=== PATIENT | female | born 1965 | race Caucasian/White ===

== ENCOUNTER → 2020-05-01 16:16 | Outpatient (CLI) | payer BC, SELFPAY ==
--- NOTE | ~2020-05-01 | MM_ITS ---
EXAMINATION: MM screening myra BI w peggy HISTORY: Screening mammogram, family history of breast cancer in her mother. TECHNIQUE: Craniocaudal and mediolateral oblique 3-D tomosynthesis images were obtained and synthetic 2-D images were generated. CAD analysis was submitted and interpreted. COMPARISON: 10/06/2017, 09/10/2015 BREAST PARENCHYMAL COMPOSITION: There are scattered areas of fibroglandular density. FINDINGS: There is no evidence of suspicious mass, calcification, or architectural distortion to sugg est malignancy in either breast. There has been no suspicious interval change. IMPRESSION: 1. No mammographic evidence of malignancy. 2. Recommend routine screening mammography in one year. BI-RADS Category 1: Negative Reviewed, dictated and finalized at location A. 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
== END ==
PROVIDERS: Visit Provider Nurse Practitioner Obstetrics & Gynecology
DX: Z12.31 Encounter for screening mammogram for malignant neoplasm of breast (principal)
CPT/HCPCS: 77063; 77067

== ENCOUNTER 2021-02-01 00:52 | Day surgery (SDC) | payer BC, SELFPAY ==
[2021-01-20 13:22] VITALS: BMI 24.9
[2021-02-01 08:37] VITALS: BP 121/82; PULSE 76; RESP 16; TEMP 36.6; O2SAT 99; BMI 23.1
--- NOTE | 2021-02-01 09:02 | P.PNAN_ITS ---
Anes - Initial Pre Proc Eval Procedure: Operation Date: 02/01/21 09:30 Proposed Procedures p Screening Colonoscopy - Esau Ballesteros MD Date/Time: 02/01/21 09:02 Surgeon: Esau Ballesteros MD Pre Op Diagnosis: neoplasm screening Patient Data Age: 55 Gender: F Height: 1.65 m Weight: 63 kg Last Vital Signs Temp 97.9 F 02/01/21 08:37 Pulse 76 02/01/21 08:37 Resp 16 02/01/21 08:37 BP 121/82 02/01/21 08:37 Pulse Ox 99 02/01/21 08:37 Allergies Allergy/AdvReac Type Severity Reaction Status Date / Time NA Allergy Mild Other Uncoded 02/01/21 08:33 Home Medications Medication Instructions Recorded Confirmed Type fluoxetine 20 mg capsule 20 mg PO DAILY 03/25/20 02/01/21 History cholecalciferol (vitamin D3) 1,250 50,000 unit PO WEEKLY #8 cap 03/31/20 02/01/21 Rx mcg (50,000 unit) capsule omeprazole 20 mg capsule,delayed 20 mg PO BID #60 cap 10/20/20 02/01/21 Rx release Patient hx anesthesia problems: none Family hx anesthesia problems: none Results Review: All pre-operative results and documents have been reviewed as part of the pre-operative evaluation. FOR[facility], [facility] Past Medical History Medical History Acute bronchitis due to other specified organisms Chest discomfort Dizziness New persistent daily headache Family History Family History Father No problems noted. Mother Breast cancer Heart disease Sibling No problems noted. 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 Gender identity (if verbalized by the patient): Female Anes - Eval Final PreProcedure Day of Procedure 02/01/21 09:02 Patient weight: normal Heart: regular rate and rhythm Lungs: clear to auscultation Airway: Mallampati scale class II Neurological: alert and oriented Last oral intake: >/= 8 hours ASA classification: II Emergent: no Anesthetic plan: proceed Anesthesia type and monitoring: general GIVS and standard monitoring Results Review: All pre-operative results and documents have been reviewed as part of the pre-operative evaluation. Informed Consent: The patient's anesthetic plan and its attendant risks and benefits were discussed with the patient/family/POA. Questions were solicited and answers provided to the satisfaction of the patient/family/POA.
--- NOTE | 2021-02-01 09:03 | PM.HPGS ---
History of Present Illness History of Present Illness Consent: Risks, benefits, and alternatives have been discussed and questions answered. Patient agrees to proceed with procedure. Chief complaint: neoplasm screening Narrative: Ayla Cortez is a 55 year old female here for first screening colonoscopy Review of Systems Constitutional: Constitutional: Denies headache(s) and Denies weakness Eyes: Eyes: Denies blurry vision ENT: Reports Normal hearing present, Denies headache(s) and Denies neck pain Cardiovascular: Cardiovascular: Denies chest pain and Denies dyspnea Respiratory: Respiratory: Denies dyspnea Gastrointestinal: Gastrointestinal: Reports no additional gastrointestinal complaints Genitourinary: Genitourinary: Denies dysuria Musculoskeletal: Musculoskeletal: Denies neck pain Integumentary/Breasts: Skin/Breast: Denies dry skin Neurologic: Reports Normal hearing present, Denies headache(s) and Denies weakness Psychiatric: Psychiatric: Denies anxiety Endocrine: Endocrine: Denies change in body appearance Hematologic/Lymphatic: Hematologic/Lymphatic: Denies easy bleeding Allergic/Immunologic: Allergic/Immunologic: Denies urticaria PMFSH Past Medical History Medical History Acute bronchitis due to other specified organisms Chest discomfort Dizziness New persistent daily headache Family History Family History Father No problems noted. Mother Breast cancer Heart disease Sibling No problems noted. 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 Gender identity (if verbalized by the patient): Female Meds Home Medications and Allergies Home Medications Medication Instructions Recorded Confirmed Type fluoxetine 20 mg capsule 20 mg PO DAILY 03/25/20 02/01/21 History cholecalciferol (vitamin D3) 1,250 50,000 unit PO WEEKLY #8 cap 03/31/20 02/01/21 Rx mcg (50,000 unit) capsule omeprazole 20 mg capsule,delayed 20 mg PO BID #60 cap 10/20/20 02/01/21 Rx release Allergies Allergy/AdvReac Type Severity Reaction Status Date / Time NA Allergy Mild Other Uncoded 02/01/21 08:33 Vital Signs Vital Signs - 24 hr 02/01/21 08:37 Temperature 97.9 F Pulse Rate 76 Respiratory Rate 16 Blood Pressure 121/82 Pulse Oximetry 99 Exam Const: General: comfortable and no acute distress HENMT: General nose exam: Normal nares present Eyes: General: appearance normal, both eyes and all related structures Neck: Neck: no JVD Resp: Auscultation: clear to auscultation bilaterally Cardio: Rate: regular rate Rhythm: regular rhythm GI: Inspection: non-distended GI Palp: Yes Soft to palpation Skin: General skin exam: normal color Neuro: General: gait normal Speech: normal speech Extrem: General: normal to inspection Psych: Mental Status: mental status grossly normal Assessment and Plan Assessment and plan (1) Screening for malignant neoplasm of colon: Code(s): Z12.11 - Encounter for screening for malignant neoplasm of colon Status: Acute Assessment and Plan: colonoscopy
[2021-02-01] MEDS: LACTATED RINGERS 1,000 ML 150 ML IV CONT (09:23)
[2021-02-01 09:59] VITALS: BP 95/68; PULSE 69; RESP 20; O2SAT 99
[2021-02-01 10:09] VITALS: BP 105/75; PULSE 76; RESP 18; O2SAT 100
[2021-02-01 10:19] VITALS: BP 114/76; PULSE 74; RESP 20; O2SAT 100
== END 2021-02-01 10:35 | disposition home or self-care (01) ==
PROVIDERS: PCP Family Medicine; Visit Provider Internal Medicine Gastroenterology
PROC: 0DJD8ZZ Inspection of Lower Intestinal Tract, Via Natural or Artificial Opening Endoscopic (ICD-10-PCS; CPT 45378; principal; 2021-02-01 09:30)
DX: Z12.11 Encounter for screening for malignant neoplasm of colon (principal); D12.0 Benign neoplasm of cecum; D12.2 Benign neoplasm of ascending colon; D12.5 Benign neoplasm of sigmoid colon; K63.5 Polyp of colon; K64.8 Other hemorrhoids
CPT/HCPCS: 45385; 88305; J2704; J7120

== ENCOUNTER 2023-12-27 15:00 | Outpatient (CLI) | payer BC, SELFPAY ==
--- NOTE | ~2023-12-27 | MM_ITS ---
EXAMINATION: MM screening myra BI w peggy HISTORY: Screening mammogram, family history of breast cancer in her mother. TECHNIQUE: Craniocaudal and mediolateral oblique 3-D tomosynthesis images were obtained and synthetic 2-D images were generated. CAD analysis was submitted and interpreted. COMPARISON: 05/01/2020, 10/06/2017 BREAST PARENCHYMAL COMPOSITION:Not Dense. There are scattered areas of fibroglandular density. FINDINGS: No suspicious mass, calcification, or architectural distortion are identified in either lupe ast to suggest malignancy. There has been no suspicious interval change. IMPRESSION: No mammographic evidence of malignancy. Recommend routine screening mammography in one year. BI-RADS Category 1: Negative Reviewed, dictated and finalized at location .
== END 2023-12-27 15:01 | disposition home or self-care (01) ==
LOC: MICIMG 15:01
PROVIDERS: PCP Nurse Practitioner Obstetrics & Gynecology; Visit Provider Nurse Practitioner Obstetrics & Gynecology
DX: Z12.31 Encounter for screening mammogram for malignant neoplasm of breast (principal)
CPT/HCPCS: 77063; 77067

== ENCOUNTER 2024-09-06 00:39 | Day surgery (SDC) | payer BC, SELFPAY ==
[2024-08-23 15:21] VITALS: BMI 25.8
--- NOTE | 2024-08-23 15:28 | PC.NURSE ---
Addendum entered by Oj Cantrell RN 08/28/24 13:27: Patient says no changes since preop interview. Told patient to be here at 10am on 09-06-2024 for surgery at 1200. Original Note: Report to the Outpatient Waiting Room, entrance under the green pavilion located off [facility], at time _1230_ on date _[id number]_. Planned Procedure Time: _230pm_.? Time changes happen often and if your time is changed the preop area will call you the afternoon before. - You and your visitor will be asked to self-screen and do not enter if you have any COVID symptoms. Please call surgeon if you need to reschedule. - A mask is optional within the hospital at this time. Patients may have clear liquids (water, carbonated beverages, clear teas, apple juice) until 3 hours prior to surgery with a maximum of 20 ounces. - No food from midnight until time of surgery and no smoking, or chewing tobacco (or any form of nicotine). No chewing gum, candy or mints. Take only the following medications with a SIP of water on the morning of surgery: __Fluoxetine____ DO NOT STOP ANY OF YOUR OTHER PRESCRIPTION MEDICATIONS PRIOR TO SURGERY EXCEPT THE FOLLOWING Hold all vitamins and supplements for 3 days per anesthesiologist. Medications to discontinue per physician Date to take last dose____ Please no make-up, nail iraqi, hairspray, perfume, deodorant, or body powder the day of surgery.? No jewelry (including any body piercings) or valuables the day of surgery, leave them at home.? Please take a shower or bath the night before, or the morning of, surgery with an antibacterial soap.? Wear comfortable, loose fitting clothing.? - Jewelry must be removed prior to entering the operating room.? Rings and piercings that are not removed may be cut off. - The hospital will not accept responsibility for valuables.? - Please leave all valuables, including medications, at home the day of surgery. If you are going home after surgery, a licensed catering driver must drive you home.? - NO public transportation without another adult if you receive anesthesia. - We recommend that an adult stay with you for 24 hours following discharge. - We also recommend that you do not drive, make important decision, drink alcoholic beverages, or take any drugs that were not prescribed by your health care provider for at least 24 hours after your discharge time. Follow any additional instructions given to you from your surgeon. Telephone instructions given to __Ayla__and asked if any additional questions and then verbalized understanding. Patient advised to call surgeon office or pre surgery nurse liaison [phone] if any additional questions.
--- OUTSIDE RECORDS SUMMARY | 2024-09-06 00:42 | XMS_ITS | Clinical Summary ---
Author Organization 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 Name Role Phone Unavailable Primary Care Provider Unavailabl e Immunizations Immunization Administration Dates Next Due Covid-19, Mrna, Lnp-s, PF, 5 0 mcg/0.25 mL dose (Moderna) 02/05/2021 Social History Tobacco Use Types Packs/Day Years Used Date Smoking Tobacco: Never Assessed Comments Unknown Sex and Gender Information Value Date Recorded Sex Assigned at Not on file Legal Sex Female 3:31 PM [employer] Gender Identity Not on file Sexual Orientation Not on file Plan of Treatment Health Maintenance Due Date Last Done Comments Hepatitis C Virus (HCV) Screening 1967 TdaP Immunization 1967 Hepatitis B Immunization (1 of 3 - 19+ 3-dose series) 1986 Pap Smear 02/18/1988 Cervical Cancer Screening (CCS) 1997 HPV/Cotest 1997 Cologuard 02/18/2012 Colonoscopy 02/18/2012 Colorectal Cancer Screening 02/18/2012 Immunochemical Fecal Occult Blood 02/18/2012 Pneumococcal Immunization (5 0+ years) (1 of 1 - PCV) 2017 Zoster Immunization (1 of 2) 2017 SARS-COV-2 Immunization ( - season) 2023 02/05/2021, 05/19/2020, 04/09/2020 Influenza Immunization (#1) 2024 01/06/2020 Respiratory Syncytial Virus (RSV) Immunization (Adult) (1 - 1-dose 75+ series) 2042 Human Papillomavirus (HPV) Immunization Aged Out No longer eligible b ased on patient's age to complete this topic Meningococcal Immunization (ACWY) Aged Out No longer eligible b ased on patient's age to complete this topic Rotavirus Immunization Aged Out No lo nger eligible based on patient's age to complete this topic
--- OUTSIDE RECORDS SUMMARY | 2024-09-06 00:42 | XMS_ITS | Data Portability ---
Author Organization [facility] Address [address] [place] [address] Care Team Providers Care Surgical Coordinator Name Role Phone RADHA RODGERS Primary Care Provider Assessment Encounter Date Assessment Date Assessment LastModified by Organization Details LastModified Time 02/06/2024 02/06/2024 Annual gynecological exam performed. Patient will come back in a year unless there are new symptoms. [email or web address] Not available 02/06/2024 10:01:45 Plan of Treatment Reminders Order Date Submit Date Provider Last Modified By Organization Details Last Modified Time Details Appointments SURG Hysterosc opy 2024 12:00P Eliane BRUCE MD Not available Not available Not available SURG POST OP 2024 09:00A Eliane BRUCE MD Not available Not available Not available Lab None recorded. Referral None recorded. Procedures biopsy, cervix (PROC) 2024 025 [email or web address] [facility], [address] [place] [address], [address], 07/30/2024 10:26:27 Surgeries dilation and curettage with hysterosc opy (SURG) 2024 025 [email or web address] [facility], [facility] [address], [address], 08/27/2024 09:42:42 Imaging US, pelvis 2024 025 [email or web address] [place], [address], [place], [address], 06/12/2024 17:09:20 US, transvagi nal 2024 025 [email or web address] [place], [address], [address], [place], [address], 06/12/2024 17:09:20 US, pelvis, complete 2024 025 [email or web address] [place], [address], [place], [address], 06/14/2024 10:05:35 Medication Orders estradiol 0.01% (0.1 mg/gram) vaginal cream 2023 [id number], [address] [facility], [place], [place], [phone], 02/06/2024 10:26:19 fluoxetin e 20 mg capsule 2023 024 [id number], [address] [facility] [address] [facility] [address] [facility], [place], [place], [phone], 02/06/2024 15:55:15 Patient TargetsNo targets recorded. Patient InstructionsNo instructions recorded. Reason for Referral None Reported. Results Created Date Observation Date Name Description Value Unit Range Abnormal Flag Note LastModifiedBy Organization Detail LastModifiedTime 06/13/1906/12/2024 US, gregorio s No observ ation record ed. [email or web address] [place] [address], [place], [address], 06/12/2024 13:27:45 06/13/1906/12/2024 US, trans vagin al No observ ation record ed. [email or web address] [place] [address], [place], [address], 06/12/2024 13:27:53 06/13/19 25 06/12/2024 US, pelvi s No observ ation record ed. [email or web address] [address], [place], [address], 06/13/2024 18:40:25 Result Notes None recorded. Problems Name Problem SNOMED Code Status Onset Date Resolution Date Notes Provider Name and Address Organization Details Recorded Time Feeling irritable 81799222 Completed 201411/27/2020 Irritable ;Recorded Elsewhere : No Locati on: [facility] So urce: EHR Chron ic: N Practic e ID: 0001 Bill able Time: 03:15:00 PM [facility] 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 12:50:[address] Concept Completed 201511/27/2020 Encntr for general adult medical exam w/o abnormal findings; Recorded Elsewhere : No Locati on: [facility] So urce: EHR Chron ic: N Practic e ID: 0001 Bill able Time: 03:00:00 PM [facility] 12:50:52 Specializ ed medical examinati on Completed 201104/16/2012 Gynecolog ical Examinati on;Record ed Elsewhere : No Locati on: [facility] So urce: EHR Chron ic: N Practic e ID: 0001 Bill able Time: 01:45:00 PM [facility] 12:50:55 Adult health examinati on Completed 201411/27/2020 ROUTINE MEDICAL EXAM;Madhav rded Elsewhere : No Locati on: [facility] So urce: EHR Chron ic: N Practic e ID: 0001 Bill able Time: 03:15:00 PM Jeana Cope [facility] 1 12:50:44 Screening for malignant neoplasm of cervix Completed 201104/16/2012 Screening for malignant neoplasms of the cervix;Re corded Elsewhere : No Locati on: [facility] So urce: EHR Chron ic: N Practic e ID: 0001 Bill able Time: 01:45:00 PM Jeana Cope [facility] 1 12:50:49 Screening for malignant neoplasm of rectum Completed 201811/27/2020 Encounter for screening for malignant neoplasm of rectum;Re corded Elsewhere : No Locati on: [facility] So urce: EHR Chron ic: N Practic e ID: 0001 Bill able Time: 03:00:00 PM Jeana Cope [facility] 1 12:50:51 Evaluatio n finding Completed 201711/27/2020 Hematuria , unspecifi ed;Record ed Elsewhere : No Locati on: [facility] So urce: EHR Chron ic: N Practic e ID: 0001 Bill able Time: 10:30:00 AM Jeana Cope [facility] 1 12:50:46 Specializ ed medical examinati on Completed 201311/27/2020 Gynecolog ical Examinati on;Record ed Elsewhere : No Locati on: [facility] So urce: EHR Chron ic: N Practic e ID: 0001 Bill able Time: 02:30:00 PM Jeana Cope [facility] 1 12:50:55 Screening for malignant neoplasm of rectum Completed 201104/16/2012 Screening for malignant neoplasms of the rectum;Re corded Elsewhere : No Locati on: [facility] So urce: EHR Chron ic: N Practic e ID: 0001 Bill able Time: 01:45:00 PM Jeana Cope [facility] 12:50:51 Screening for malignant neoplasm of cervix Completed 201211/27/2020 Pap Smear;[facility] ctice ID: [id number] Jeana Cope [facility] 12:50:49 Problem Notes None recorded. Procedures Surgical History Date Name Laterality Status Provider Name and Address Organization Details Recorded Time 12/27/19 24 Date of Last Mammogram completed [facility] 02/06/2024 10:04:31 02/03/20 23 Date of Last Pap Smear completed [facility] 04/06/2023 09:12:10 02/23/20 21 colonoscopy completed Soha Turner [facility]- [address], [place], [address], [facility] 02/02/2023 16:26:06 02/02/20 21 completed [facility] 02/06/2024 10:03:21 12/29/19 21 Date of Last Colonoscopy completed Jeana Cope [facility] 12/06/2021 11:28:16 02/27/18 87 biopsy of chest wall completed [facility] 02/06/2024 10:07:03 closed reduction of fracture of elbow completed [facility] 02/06/2024 10:06:44 Hernia repair w/mesh completed [facility] 02/06/2024 10:06:33 Imaging Results None recorded. Procedure Notes None recorded. Medical Equipment None Reported. Allergies No known drug allergies Medications Name Sig Start Date Stop Date Status Note LastModified by Organization Details LastModified Time promethaz ine-DM 6.25 mg-15 mg/5 mL oral syrup TAKE 5 ML BY MOUTH EVERY 4 TO 6 HOURS NEEDED 07/10 completed Not Available Not Available Not Available doxycycli ne hyclate 100 mg capsule TAKE 1 CAPSULE BY MOUTH TWICE DAILY FOR 10 DAYS 06/06 completed Not Available Not Available Not Available prednison e 20 mg tablet TAKE 2 TABLETS BY MOUTH DAILY FOR 5 DAYS 06/06 completed Not Available Not Available Not Available amoxicill in 500 mg tablet take 1 tablet by oral route 3 times every day 11/27 completed Prescrib ed Elsewher e: No [facility] By: oneil George ncounter DateTime : 10/06/19 19 01:47:55 PM Not Available Not Available Not Available ciclopiro x 8 % topical solution APPLY TOPICALL Y TO TOENAILS EVERY NIGHT AT BEDTIME 02/05 completed Not Available Not Available Not Available Prilosec 10 mg capsule,d elayed release 02/02 completed Not Available Not Available Not Available fluoxetin e 10 mg capsule TAKE 1 CAPSULE BY MOUTH EVERY DAY WITH MEALS 02/02 completed Not Available Not Available Not Available omeprazol e 20 mg capsule,d elayed release TAKE 1 CAPSULE BY MOUTH TWICE DAILY active Not Available Not Available No t Available estradiol 0.01% (0.1 mg/gram) vaginal cream Insert 1g vaginall y at bedtime for 2 weeks, then insert 1g vaginall y at bedtime 2-3 times per week as maintena nce dose active Not Available Not Available No t Available Vitamin D2 1,250 mcg (50,000 unit) capsule take 1 capsule by oral route every week 09/18 completed Prescrib ed Elsewher e: No [facility] odify By: dariusz George ncounter DateTime : 09/03/19 15 12:49:34 PM Not Available Not Available Not Available ketoconaz ole 2 % topical cream APPLY TOPICALL Y TO FOOT TWICE DAILY 02/05 completed Not Available Not Available Not Available fluoxetin e 20 mg capsule TAKE 1 CAPSULE BY MOUTH EVERY DAY active Not Available Not Available No t Available nitrofura ntoin monohydra te/macroc rystals 100 mg capsule TAKE 1 CAPSULE BY MOUTH EVERY 12 HOURS WITH FOOD UNTIL ALL TAKEN 02/05 completed Not Available Not Available Not Available amoxicill in 11/25 completed Not Available Not Available Not Available Prozac 11/25 completed Not Available Not Available Not Available Prometriu m 06/06 completed Not Available Not Available Not Available MARK (28) 3 mg-0.02 mg tablet take 1 tablet by oral route every day 07/08 completed Prescrib ed Elsewher e: No Locat ion: [facility] george [facility] odify By: dariusz szymanski DateTime : 06/26/19 03:15:00 PM Not Available Not Available Not Available cholecalc iferol (vitamin D3) 1,250 mcg (50,000 unit) capsule TAKE ONE CAPSULE BY MOUTH WEEKLY DIRECTED 02/02 completed Not Available Not Available Not Available Imvexxy Maintenan ce Pack 4 mcg vaginal insert INSERT 1 CAPSULE VAGINALL Y AT BEDTIME TWICE WEEKLY FOR DURATION OF USE. 02/05 completed Not Available Not Available Not Available ID NOW COVID-19 Test Kit TEST DIRECTED TODAY 12/06 completed Not Available Not Available Not Available COVID-19 test specimen collectio n DIRECTED 12/06 completed Not Available Not Available Not Available testoster one 100 mg implant pellet Take by implanta tion route. 06/06 completed Not Available Not Available Not Available estradiol 10 mg implant pellet Take by implanta tion route. 06/06 completed Not Available Not Available Not Available Vitals Date Recorded Body height Body mass index (BMI) Body weight Systolic And Diastolic Provider Name and Address Organization Details Last Updated DateTime 06/06/2024 164.47 cm 26.3 kg/m2 52530 g 119/77 mm[Hg] Regina Vazquez [facility] 06/06/2024 09:32:16 Date Recorded Body height Body mass index (BMI) Body weight Systolic And Diastolic Provider Name and Address Organization Details Last Updated DateTime 07/10/2024 164.47 cm 26.3 kg/m2 32365 g 140/82 mm[Hg] Monae Morgan [facility] 07/10/2024 16:47:31 Date Recorded Body height Body mass index (BMI) Body weight Systolic And Diastolic Provider Name and Address Organization Details Last Updated DateTime 08/05/2024 164.47 cm 26.3 kg/m2 60083 g 122/82 mm[Hg] Monae Pompaer [facility] 08/05/2024 15:28:41 Date Recorded Body height Body mass index (BMI) Body weight Systolic And Diastolic Provider Name and Address Organization Details Last Updated DateTime 02/06/2024 164.47 cm 25.5 kg/m2 12809.04 g 137/89 mm[Hg] Monae Eddie [facility] 02/06/2024 10:02:38 Social History Question Answer Notes LastModified by Organizat ion Details LastModified Time Tobacco Smoking Status Never Smoker Regina Vazquez dena [facility] 02/02/2023 16:07:30 Do You Have An Advance Directive? No Information n ot available 11/30/2020 How Many Years Have You Consumed Alcohol? 20 Information not available 11/30/2020 Are You Blind Or Do You Have Difficulty Seeing? No Information n ot available 11/27/2020 What Is Your Level Of Caffeine Consumption? Moderate Information not available 11/30/2020 How Much Tobacco Do You Chew? None Information not available 11/30/2020 In The 14 Days Before Symptom Onset, Have You Had Close Contact With A Laboratory-confirm ed COVID-19 While That Case Was Ill? No Information n ot available 11/30/2020 In The 14 Days Before Symptom Onset, Have You Had Close Contact With A Person Who Is Under Investigation For COVID-19 While That Person Was Ill? No Information not available 11/30/2020 Have You Been To An Area Known To Be High Risk For COVID-19? No Information not available 11/30/2020 Are You Deaf Or Do You Have Serious Difficulty Hearing? No Information not available 11/27/2020 What Type Of Diet Are You Following? REGULAR Information n ot available 11/27/2020 What Is The Highest Grade Or Level Of School You Have Completed Or The Highest Degree You Have Received? [id number] Information not available 11/30/2020 Are There Any Guns Present In Your Home? No Information not available 11/30/2020 Do You Use Protection During Sex? Always Information not available 11/30/2020 Do You Use Your Seat Belt Or Car Seat Routinely? Yes Information not available 11/27/2020 Are You Sexually Active? Yes [email or web address] Information not available 06/06/2024 Do You Have Smoke And Carbon Monoxide Detectors In Your Home? Yes Information not available 11/27/2020 How Much Tobacco Do You Smoke? No Information not available 11/30/2020 Do You Use Sunscreen Routinely? Yes Information not available 11/27/2020 Have You Used IV Drugs? No Information not available 11/30/2020 Do You Have Difficulty Walking Or Climbing Stairs? No Information not available 02/02/2023 Sex: Female Functional Status Question Answer Note LastModified by Organizat ion Details LastModified Time Do you use any illicit or recreational drugs? No Information not available 11/27/2020 What is your level of alcohol consumption? Occasional Information not available 11/27/2020 Are you currently employed? Yes [email or web address] Information not available 06/06/2024 Are you able to walk? YESWOREST Information not available 11/27/2020 Are you able to care for yourself? 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 No [email or web address] Information not available 02/02/2023 What is your exercise level? Moderate Information not available 11/27/2020 Mental Status Question Answer Note LastModified by Organization D etails LastModified Time Do you feel stressed (tense, restless, nervous, or anxious, or unable to sleep at night)? [id number] Information not available 11/30/2020 Family History Relationship Description Onset Age of this Age Resolved Age Notes LastModified by Organization Details LastModified Time Mother Carcinoma in situ of breast [email or web address] Not available 2024 15:03:08 Mother Hypertensive disorder [email or web address] Not available 2019 14:58:11 Mother Heart disease [email or web address] Not available 2019 14:58:28 Mother Fibromyalgia [email or web address] Not avail able 08/05/2024 15:03:08 Maternal Grandmother Carcinoma in situ of breast [email or web address] Not available 2024 15:03:08 Maternal Grandmother Hypertensive disorder [email or web address] Not available 2019 14:58:11 Paternal Grandfather Diabetes mellitus [email or web address] Not available 2019 14:57:23 Brother Suspected brain tumor [email or web address] Not available 10/2024 15:03:08 Brother Hypertensive disorder [email or web address] Not available 2019 14:58:11 Brother Malignant tumor of pancreas [email or web address] Not available 2024 15:03:08 Maternal Grandfather Hypertensive disorder [email or web address] Not available 2019 14:58:11 Maternal Aunt Hypertensive disorder [email or web address] Not available 2019 14:58:11 Maternal Uncle Hypertensive disorder [email or web address] Not available 2019 14:58:11 Medical History Condition Response Anxiety Disorder Y History of abnormal pap Y Cancer Y Depression/ depression Y Gynecological History Statement/Question Response Abnormal Pap N Date of Last Mammogram 12/27/2023 On BCP's at Conception? N N Was last menstrual period normal Y STIs/STDs N HPV Vaccine N Current Control Method Menopause Age at First Child 28 If Post Menopausal, Age at Menopause 50 Date of Last Colonoscopy 12/28/2020 Sexually Active? Y Menses Monthly N Age of first menstrual cycle 14 Date of Last Pap Smear 02/02/2023 Sexual Problems? Y LMP Unknown 02/01/2021 N Obstetrics History GPAL:G 3 P 3 0 0 3 Type Value Full Term 3 Living 3 Total 3 Past Encounters Encounter ID Performer Location Encounter Start Date Encounter Closed Date Diagnosis/Indication Diagnosis SNOMED-CT Code Diagnosis ICD10 Code Diagnosis Note [id number] JOSE [facility] [address] [address] 11/26/2019 15:04:05 11/26/2019 16:28:25 Gynecologic examination 28875104 Z01.419 Take Calcium with Vitamin D 12-1500mg daily. Do monthly self breast exams. It is advised to get annual flu shot in the fall and she could obtain at [facility]. If you haven't received the Tdap vaccine in the last 10 years you should obtain one as well. Have mammogram yearly, bone density every 2-3 years and colonoscop y every 5-10 years depending on findings and history. Engage in daily exercise of low impact aerobic exercise 45-60 minutes 4-5 times weekly. Avoid tobacco and illicit drugs as well as using moderation with alcohol intake less than 1-2 8 oz beverages daily. This lifestyle behavior pattern will lead to less health conditions and longer life span. If BMI greater than 25 weight watchers or dietary consult advised. Questions have been answered. Patient appears to understand instructio ns, but if you have any further questions call or respond to this email No issues or concerns this year. Doing well. UTD colonoscop y Mammo ordered 1-abn pap/hpv in with colpo. None since this time per pt. Last pap/hpv 2019 wnl 2018 through 2015 wnl Opts to defer [place] [id number] Soha Turner , [facility] [address] [address] 11/30/2020 12:40:19 11/30/2020 13:27:06 Gynecologic examination 88284126 Z01.419 Take Calcium with Vitamin D 12-1500mg daily. Do monthly self breast exams. It is advised to get annual flu shot in the fall and she could obtain at [facility] or [facility]. If you haven't received the Tdap vaccine in the last 10 years you should obtain one as well. Have mammogram yearly, bone density every 2-3 years and colonoscop y every 5-10 years depending on findings and history. Engage in daily exercise of low impact aerobic exercise 45-60 minutes 4-5 times weekly. Avoid tobacco and illicit drugs as well as using moderation with alcohol intake less than 1-2 8 oz beverages daily. This lifestyle behavior pattern will lead to less health conditions and longer life span. If BMI greater than 25 weight watchers or dietary consult advised. Questions have been answered. Patient appears to understand instructio ns, but if you have any further questions call or respond to this email No issues or concerns this year. Doing well.Colon scopy--Dis cussed & will let us know when ready for referral. Mammo-comp leted & wnl 1-abn pap/hpv in 1997 with colpo. None since this time per pt. Last pap/hpv 2019 wnl 2018 through 2016 wnl Opts to defer pap this year. Monogamous relationsh ip Screening mammography 24 939761 Z12.31 Screening for malignant neoplasm of colon 765876003 Z12.11 [id number] Soha Turner , [facility] [address] [address] 12/06/2021 10:53:32 12/06/2021 11:34:26 Gynecologic examination 00778751 Z01.419 Z11.51 Take Calcium with Vitamin D 12-1500mg daily. Do monthly self breast exams. It is advised to get annual flu shot in the fall and she could obtain at [facility] or [facility] care clinic. If you haven't received the Tdap vaccine in the last 10 years you should obtain one as well. Have mammogram yearly, bone density every 2-3 years and colonoscop y every 5-10 years depending on findings and history. Engage in daily exercise of low impact aerobic exercise 45-60 minutes 4-5 times weekly. Avoid tobacco and illicit drugs as well as using moderation with alcohol intake less than 1-2 8 oz beverages daily. This lifestyle behavior pattern will lead to less health conditions and longer life span. If BMI greater than 25 weight watchers or dietary consult advised. Questions have been answered. 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 Counseled on r/b's, most common side effects of this therapy with adele hartman to stop medication with any significan t abnormal change in mood especially with thoughts of suicide/se lf-harm/singh rm to others. Understand ing verbalized . RTO x 6-8wks or sooner if needed Screening mammography 24 445215 Z12.31 [id number] Soha Turner , [facility] [address] [address] 02/02/2023 16:06:33 02/02/2023 16:42:58 Gynecologic examination 69614010 Z01.419 Z11.51 Take Calcium with Vitamin D 12-1500mg daily. Do monthly self breast exams. It is advised to get annual flu shot in the fall and she could obtain at [facility] or [facility] care clinic. If you haven't received the Tdap vaccine in the last 10 years you should obtain one as well. Have mammogram yearly, bone density every 2-3 years and colonoscop y every 5-10 years depending on findings and history. Engage in daily exercise of low impact aerobic exercise 45-60 minutes 4-5 times weekly. Avoid tobacco and illicit drugs as well as using moderation with alcohol intake less than 1-2 8 oz beverages daily. This lifestyle behavior pattern will lead to less health conditions and longer life span. If BMI greater than 25 weight watchers or dietary consult advised. Questions have been answered. Patient appears to understand instructio ns, but if you have any further questions call or respond to this email Pap/hpv sent STD Screen declined Genetic Screen discussed, previously completed NEG Colon Screen PCP Dexa Screen na Routine Labs PCPMammo ordered Mixed anxi ety and depressive disorder [id number] F41.8 Happy on this therapy.Ne g suicidal ideations or thoughts of self harmRF sent x 1yrNo changes required at this time. Screening mammography 24 129675 Z12.31 Dyspareunia 49742982 N94 .10 RTO x 8wksDiscus sed systemics risks vs non-system ic local effects and risks associated with breast cancer/car diovascula r effects. She is neg for genetic markers cancer.Tri al of imvexxy 4mcg which is lowest dose on the market. Counseled on the following: Vaginal Dryness: Bothersome symptoms of the vagina and vulva (outer lips of the vagina) increase during and after the menopause transition or may start several years after menopause. The decrease in estrogen with menopause is a major contributo r to vaginal dryness, itching, burning, discomfort , and pain during intercours e or other sexual activity. Vaginal atrophy is the medical term that describes these changes. The genitourin earl syndrome of menopause includes bothersome vaginal atrophy often combined with urinary symptoms. Vaginal atrophy may significan tly affect your quality of life, sexual satisfacti on, and relationsh ip with your partner. Unlike hot flashes, which generally improve with time, vaginal symptoms typically worsen with time because of aging and a prolonged lack of estrogen. Vaginal estrogen therapy An effective and safe treatment, low-dose local estrogen is applied directly to the vagina to restore vaginal health and relieve vaginal dryness and discomfort with sexual activity. Improvemen ts usually occur within a few weeks, although complete relief may take several months. This even may be an option for women with a history of breast or uterine cancer but only after careful considerat ion of risks and benefits with a healthcare provider and oncologist . Governmen t-approved low-dose vaginal estrogen products are available by prescripti on as vaginal creams (used two or three nights/wee k), a vaginal estradiol tablet (used twice/week ), and an estradiol vaginal ring (changed every 3 months). All are highly effective. You may wish to try several different forms and choose the one you prefer. Standard doses of estrogen therapy provided to treat hot flashes also treat vaginal dryness, although some women still benefit from additional low-dose vaginal estrogen treatment. If only vaginal symptoms are present, low doses of estrogen applied to the vagina are recommende d. Resources: https://luís w.I.[employer]ict[employer] e.org/docs /default-s ource/for- women/mn-v aginal-dry ness.pdf [id number] Soha Turner [facility] [address],[facility] [place] [address] 04/06/2023 08:57:31 04/06/2023 09:33:32 Dyspareunia [id number] N94.10 Patient is here today for a medicaton check of imvexxy. She voices goals of therapy have been met with use of this therapy. She denies neg side effects. She notes improvemen t in skin quality/co mfortable sex/less dryness. Wishes to continue this method of Therapy at this dosage. Appropriat e to continue this medication .Discussed Vulvar care guidelines and use of daily moisturizi ng--counse led on these therapies. Sent to [facility] per manufactur er website; but if not covered here try [facility] pharmacy. Time spent in visit is a total of 21 mins with at least 50% of visit consisting of counseling and review of plan of care. [id number] JOSE Rodriguez [facility] [address] [address] 02/06/2024 09:55:12 02/06/2024 12:17:29 Gynecologic examination [id number] Z01.419 WWEpostmen opausalPap - not indicatedS TI screen - declinedMa mmogram - UTDColon cancer screening - UTDDexa - n/aRoutine labs - UTD/PCPRTC in 1 yr or sooner if needed Do monthly self breast exams.It is advised to get annual flu shot in the fall and she could obtain at local pharmacy. If you haven't received the Tdap vaccine in the last 10 years you should obtain one as well.Have mammogram yearly, bone density every 2-3 years and stay up to date on colon cancer screening. Engage in regular exercise. Avoid tobacco and illicit drugs. This lifestyle behavior pattern will lead to less health conditions and longer life span. If BMI greater than 25 dietary consult advised.Qu estions have been answered. 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 Discussed possible EMB pending u/s resultsTim e spent in visit is a total of 30 mins with at least 50% of visit consisting of counseling and review of plan of care. Vaginal dryness [id number] N89.8 Dyspareunia 57694093 N94 .10 [id number] Quoc Bruce MD [facility] [address] [address] 06/12/2024 10:55:57 06/12/2024 13:31:25 Postmenopausal bleeding [id number] N95.0 [id number] Quoc Bruce MD [facility] [address],[facility] [place] [address] 07/10/2024 16:09:33 07/10/2024 17:47:11 Lesion of cervix [id number] N88.9 THIS PATIENT IS A 59-YEAR-OL D FEMALE PRESENTS FOR ULTRASOUND FOLLOW-UP. Patient was found to have a 3 cm cervix lesion. It is cystic with echogenic fluid. We talked about the findings. We need to confirm that this is a benign cystic mass. We agreed to complete the cervical biopsy/ihsan inage of cyst under anesthesia . Patient has trouble with vaginal atrophy. Did not tolerate vaginal probe. she also has had an episode of postmenopa usal bleeding. We will perform hysterosco py D&C. The patient understand s the procedure. The procedure was described to the patient in great detail. the patient also understand s the risks. The risks were also explained in detail. She understand s that injuries May occur during surgery. She understand s these injuries can result in hospitaliz ation, more surgery, and severe illness. She understand s there is risk of hemorrhage and infection. [id number] Quoc Bruce MD [facility] [address] [address] 08/05/2024 15:01:47 08/05/2024 15:58:52 Lump of cervix [id number] N88.8 59-year-ol d female with with a cystic mass of the cervix. We have agreed to perform hysterosco py D&C. She understand s the risks, benefits, and alternativ es. She has completed the informed consent process and is ready to proceed. Health Concerns Section Related Observation LastModified by Organization Detai ls LastModified Time None Recorded Concern Status LastModified by Organization Details LastModified Time None Recorded Advance Directives Directive N: Payers Insurance Date Sequence Insurance Name Policy Number Policy Cunningham Covered Member ID Cunningham Member ID Guarantor Name 09/02/2024 1 [place] [id number] Luke Cortez [id number] Ayla Cortez Notes Date Note Type Note Provider Name and Address Organization Details Recorded Time 4 text/html Annual Director Hedis Post-MenopausalReported bypatient.Menopausal Symptoms:no menopausal symptoms; normal vaginal lubrication Vaginal Bleeding:history of menopause having occurred; no history of post menopausal bleeding Urinary Symptoms:no hematuria; no incontinence; no nocturia; no urinary frequency Vulva:no genital lesion; no vulvar atrophy Vagina:normal vaginal discharge; no vaginal atrophy Breast:no breast lump; no nipple discharge; no breast pain Sexual Complaints:no sexual complaints Psychological Symptoms:no depression; no anxiety Preventive Measures:encourage regular mammograms starting age 40; encourage self breast examination; encourage regular exercise; encourage no tobacco useNotes:58yo wwepostmenopausallast pap 01/2023 : nilm, HPV (-)no h/o abnormal papsmammogram UTDcolonoscopy UTD on estradiol and testosterone pellets with oral progesterone, obtained through an HRT clinic.having vaginal dryness/irritation/pain with IC on fluoxetine, doing well and desires to continue JOSE Rodriguez [address], [place], [address], [facility] 02/06/2024 15:55:30 5 text/html 59yopresents for med checkstarted on vaginal estrogen cream at [facility], used for about 3 months - stopped a few weeks ago. Noticed some improvement to vulvar irritation/dryness, vaginal dryness/pain with IC still persist.was on estrogen/testosterone pellets and oral progesterone prescribed from an HRT clinic, stopped this therapy in Mar.Has noticed light vaginal spotting on and off for the past few months neg discharge, odorsno new partnersneg pelvic painneg n/v/f JOSE Rodriguez [address], [place], [address], [facility] 06/06/2024 11:48:28 5 text/html THIS PATIENT IS A 59-YEAR-OLD FEMALE PRESENTS FOR ULTRASOUND FOLLOW-UP. Patient was found to have a 3 cm cervix lesion. It is cystic with echogenic fluid. We talked about the findings. We need to confirm that this is a benign cystic mass. We agreed to complete the cervical biopsy/drainage of cyst under anesthesia. Patient has trouble with vaginal atrophy. Did not tolerate vaginal probe. The patient understands the procedure. The procedure was described to the patient in great detail. the patient also understands the risks. The risks were also explained in detail. She understands that injuries May occur during surgery. She understands these injuries can result in hospitalization, more surgery, and severe illness. She understands there is risk of hemorrhage and infection. Quoc Bruce MD [address], [place], [address], [facility] 07/10/2024 17:33:23 5 text/html This patient is a 59-year-old female presents for cervical mass. We have agreed to perform hysteroscopy D&C to evaluate the cervical mass. The patient understands the procedure. The procedure was described to the patient in great detail. the patient also understands the risks. The risks were also explained in detail. She understands that injuries May occur during surgery. She understands these injuries can result in hospitalization, more surgery, and severe illness. She understands there is risk of hemorrhage and infection. Quoc Bruce MD [address], [place], [address], [facility] 08/05/2024 15:56:23 OBGyn Episode Ob Episode Information Episode Created Date Number of Fetuses Patient Bloodtype Patient rh Status Prepregnancy Weight lbs Domestic Partner Domestic Partner Phone Father Name Dry Cleaning Machine Operator Status 02/03/20 23 1 CLOSED Fetus Data First Name Last Name Admitted to NICU Weight (g) Sex Living Outcome Pediatric Complications Fetus ID Race Codes Race Delivery Type Full Term [id number] Vaginal Delivery Ryan Calculation Initial Ryan Date Initial Exam Date Initial Exam Provider Initial Ultrasound Date Last Menstrual Period Date Ultra Sound Weeks Gestation 0 Eighteen To Twenty Week Ryan Update Ultra Sound Date Fundal Height At Umbil Quickening Date Ultra Sound Latest Weeks Gestation Final Ryan Confirmed By Final Ryan Confirmed Date Final Ryan Date Ultra Sound Latest Days Gestation 0 0 Menstrual History Last Menstrual Date Menses Monthly On Bcp Conception Prior Menses Frequency Hcg Plus Date Menarche Onset Age Delivery Information Delivery Date Delivery Type Labor Anesthesia Weeks Gestation Incision Type Labor Labor Length Hrs Delivered By Post Complications Tubal Sterilization Discharge Date Comments 0 Discharge Information Feeding Method Contraceptive Method Maternal HG B and HCT Levels Ob Episode Information Episode Created Date Number of Fetuses Patient Bloodtype Patient rh Status Prepregnancy Weight lbs Domestic Partner Domestic Partner Phone Father Name Dry Cleaning Machine Operator Status 02/03/20 23 1 CLOSED Fetus Data First Name Last Name Admitted to NICU Weight (g) Sex Living Outcome Pediatric Complications Fetus ID Race Codes Race Delivery Type Full Term [id number] Vaginal Delivery Ryan Calculation Initial Ryan Date Initial Exam Date Initial Exam Provider Initial Ultrasound Date Last Menstrual Period Date Ultra Sound Weeks Gestation 0 Eighteen To Twenty Week Ryan Update Ultra Sound Date Fundal Height At Umbil Quickening Date Ultra Sound Latest Weeks Gestation Final Ryan Confirmed By Final Ryan Confirmed Date Final Ryan Date Ultra Sound Latest Days Gestation 0 0 Menstrual History Last Menstrual Date Menses Monthly On Bcp Conception Prior Menses Frequency Hcg Plus Date Menarche Onset Age Delivery Information Delivery Date Delivery Type Labor Anesthesia Weeks Gestation Incision Type Labor Labor Length Hrs Delivered By Post Complications Tubal Sterilization Discharge Date Comments 7 Discharge Information Feeding Method Contraceptive Method Maternal HG B and HCT Levels Ob Episode Information Episode Created Date Number of Fetuses Patient Bloodtype Patient rh Status Prepregnancy Weight lbs Domestic Partner Domestic Partner Phone Father Name Dry Cleaning Machine Operator Status 02/03/20 23 1 CLOSED Fetus Data First Name Last Name Admitted to NICU Weight (g) Sex Living Outcome Pediatric Complications Fetus ID Race Codes Race Delivery Type Full Term [id number] Vaginal Delivery Ryan Calculation Initial Ryan Date Initial Exam Date Initial Exam Provider Initial Ultrasound Date Last Menstrual Period Date Ultra Sound Weeks Gestation 0 Eighteen To Twenty Week Ryan Update Ultra Sound Date Fundal Height At Umbil Quickening Date Ultra Sound Latest Weeks Gestation Final Ryan Confirmed By Final Ryan Confirmed Date Final Ryan Date Ultra Sound Latest Days Gestation 0 0 Menstrual History Last Menstrual Date Menses Monthly On Bcp Conception Prior Menses Frequency Hcg Plus Date Menarche Onset Age Delivery Information Delivery Date Delivery Type Labor Anesthesia Weeks Gestation Incision Type Labor Labor Length Hrs Delivered By Post Complications Tubal Sterilization Discharge Date Comments 03/22/199 5 Discharge Information Feeding Method Contraceptive Method Maternal HG B and HCT Levels
--- OUTSIDE RECORDS SUMMARY | 2024-09-06 00:42 | XMS_ITS | Clinical Summary ---
Author Organization [facility] Address [address] [place] [address] Care Team Providers Care Motor Brakeman Name Role Phone Jomar Sheikh MD Primary Care Provider [phone] Source Comments [facility],non-owned Affiliates and Associated Physician Practices is amultiple site organization consisting of ambulatory clinics and hospital sitesin [place], [place], [place] and [place]. This disclosure is being madepursuant to the Care Everywhere program and may not contain all information available regarding this patient. Last updated 17.[employer] [facility] Allergies No known active allergies Medications * Be aware that medications may not be up to date on this document. Alwaysverify current medications with the patient. 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[employer] Gender Identity Not on file Sexual Orientation Not on file Last Filed Vital Signs Vital Sign Reading Time Taken Comments Blood Pressure 110/72 04/20/2018 4:39 PM FIELD FOREM[employer] Pulse 72 04/20/2018 4:39 PM FIELD FOREM[employer] Temperature 37.1 C (98.8 F) 04/20/2018 4:39 PM FIELD FOREMAN Respiratory Rate 16 04/20/2018 4:39 PM FIELD FOREMAN Oxygen Saturation 99% 04/20/2018 4:39 PM FIELD FOREMAN Inhaled Oxygen Concentration - - Weight 62.6 kg (138 lb) 04/20/2018 4:39 PM FIELD FOREMAN Height 165.1 cm (5' 5) 04/20/2018 4:39 PM FIELD FOREMAN Body Mass Index 22.96 04/20/2018 4:39 PM FIELD FOREMAN Plan of Treatment Health Maintenance Due Date Last Done Comments COLOGUARD (AGES 45-75) - COL ON CA SCREENING 1967 COLON MONITORING 1967 COLONOSCOPY - COLON CA SCREENING 1967 CT COLONOGRAPHY - COLON CA SCREENING 1967 Colorectal Cancer Screening 1967 FIT - COLON CA SCREENING 1967 FLEX SIG - COLON CA SCREENING 1967 LIPID TESTING 1967 MAMMOGRAM 1967 HIV SCREENING 1982 HEPATITIS C SCREENING 02/12/1985 DTAP/TDAP/TD VACCINES (1 - Tdap) 1986 HEPATITIS B VACCINE (1 of 3 - 19+ 3-dose series) 1986 PNEUMOCOCCAL VACCINE 50+ (1 of 1 - PCV) 2017 ZOSTER VACCINE (1 of 2) 2017 COVID-19 VACCINE (1 - 2023-2 5 season) 2023 DEPRESSION SCREENING 02/28/2024 INFLUENZA VACCINE (#1) 2024 HIB VACCINE Aged Out No longer eligi ble based on patient's age to complete this topic HPV VACCINE Aged Out No longer eligi ble based on patient's age to complete this topic MENINGOCOCCAL (Group B) VACC INE SHARED DECISION-MAKING Aged Out No longer eligibl e based on patient's age to complete this topic MENINGOCOCCAL GROUPS A/C/Y/W VACCINE Aged Out No longer eligible b ased on patient's age to complete this topic Insurance [facility] Care Teams Motor Brakeman Relationship Specialty Start Date End Date Jomar Sheikh MD [address] [place] [address] PCP - General 02/03/21
--- NOTE | 2024-09-06 11:14 | P.PNAN_ITS ---
Anes - Initial Pre Proc Eval Procedure: Operation Date: 09/06/24 12:00 Proposed Procedures p Hysteroscopy, Dilation and Curettage, Biopsy of Cervix - Quoc Bruce MD Date/Time: 09/06/24 11:14 Surgeon: Quoc Bruce MD Pre Op Diagnosis: lesion of cervix Patient Data Age: 59 Gender: F Height: 1.65 m Weight: 70.5 kg Allergies Allergy/AdvReac Type Severity Reaction Status Date / Time No Known Allergies Allergy Verified 08/28/24 13:25 Home Medications ?Medication ?Instructions ?Recorded ?Confirmed ?Type fluoxetine 20 mg capsule 20 mg PO DAILY 03/25/20 08/23/24 History estradiol 0.01% (0.1 mg/gram) 1 appful vaginal WEEKLY 08/23/24 08/28/24 History vaginal cream omeprazole 20 mg capsule,delayed 20 mg PO BID #180 caps 08/23/24 08/23/24 Rx release Patient hx anesthesia problems: none Family hx anesthesia problems: none Results Review: All pre-operative results and documents have been reviewed as part of the pre- operative evaluation. PENDING SALE TO [facility] Past Medical History Medical History Acute bronchitis due to other specified organisms BMI 26.0-26.9,adult Chest discomfort Dizziness New persistent daily headache Family History Family History Father No problems noted. Mother Breast cancer Heart disease Sibling No problems noted. 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 Gender identity (if verbalized by the patient): Female Spiritual care concerns: No Anes - Eval Final PreProcedure Day of Procedure 09/06/24 11:14 Patient weight: normal Heart: regular rate and rhythm Lungs: clear to auscultation Airway: Mallampati scale class II Neurological: alert and oriented Last oral intake: >/= 8 hours ASA classification: III Emergent: no Anesthetic plan: proceed Anesthesia type and monitoring: general GIVS and standard monitoring Results Review: All pre-operative results and documents have been reviewed as part of the pre- operative evaluation. Informed Consent: The patient's anesthetic plan and its attendant risks and benefits were discussed with the patient/family/POA. Questions were solicited and answers provided to the satisfaction of the patient/family/POA.
[2024-09-06 11:15] VITALS: BP 142/81; PULSE 73; RESP 16; TEMP 36.6; O2SAT 97
[2024-09-06] MEDS: ACETAMINOPHEN 500 MG TABLET 1000 MG PO (11:15)
[2024-09-06] MEDS: LACTATED RINGERS 1,000 ML 30 ML IV CONT (11:15)
--- NOTE | 2024-09-06 11:28 | WPDHPUPDATE1 ---
History and Physical Update Update Date/Time: 09/06/24 11:28 History and Physical has been reviewed, including an updated exam of the patient. There are NO changes in the patient's condition. Risks, benefits, and alternatives have been discussed and questions answered. Patient agrees to proceed with procedure.
--- NOTE | 2024-09-06 12:32 | W.PM.PROC2 ---
Procedure Note - Detailed Date of Procedure 09/06/24 Pre-op Diagnosis lesion of cervix Post-op Diagnosis Same Procedure Performed Exam under anesthesia Surgeon Quoc Bruce MD Anesthesia General Indications Cervical lesion on ultrasound Findings Fused vagina. Vaginal mucosa fused just inside the introitus. Impassable. Palpable mass on rectal exam in the area of the cervix. Description of Procedure Patient take aspirin. She has prepped draped in dorsal lithotomy position under MAC anesthesia. Exam under standard seizure revealed the above. Rectal exam was performed and palpable mass was noted in the area of the cervix. The procedure was terminated. Pathology None sent Condition Stable Disposition Floor
[2024-09-06 12:33] VITALS: BP 105/70; PULSE 57; RESP 14; O2SAT 100
[2024-09-06 13:00] VITALS: BP 110/72; PULSE 60; RESP 14; O2SAT 100
[2024-09-06 13:25] VITALS: BP 112/69; PULSE 70; RESP 20
--- NOTE | 2024-10-06 21:19 | PM.IMHP ---
H&P: HPI History of Present Illness Date/Time: 10/06/24 21:19 Chief Complaint: cervical mass Narrative: this patient is a 59-year-old female with cervical mass. We agreed to perform exam under anesthesia and hysteroscopy D&C. She understands risks, benefits, and alternatives. The patient understands the details of the procedure. The procedure has been explained in detail. She understands the risks. She understands that injuries may occur that result in hospitalization, more surgery, and severe illness. She understands risk of hemorrhage and infection. She denies any chest pain or shortness of breath. She denies any nausea, vomiting, fever, chills. Review of Systems Review of Systems: All systems reviewed & are unremarkable except as noted in HPI and below Constitutional: Constitutional: Denies chills, Denies fatigue, Denies fever(s) and Denies weakness Eyes: Eyes: Denies blurry vision, Denies change in vision, Denies loss of peripheral vision, Denies loss of vision, Denies other visual disturbances and Denies eye pain ENT: Denies vertigo, Denies dizziness, Denies hearing loss, Denies mouth pain, Denies nasal obstruction, Denies neck mass and Denies neck pain Cardiovascular: Cardiovascular: Denies chest pain, Denies diaphoresis, Denies syncope, Denies leg edema and Denies dyspnea Respiratory: Respiratory: Denies chest congestion, Denies cough, Denies hemoptysis, Denies dyspnea and Denies wheezing Gastrointestinal: Gastrointestinal: Denies abdominal pain, Denies constipation, Denies diarrhea, Denies nausea and Denies vomiting Genitourinary: Genitourinary: Denies hematuria, Denies change in libido, Denies nocturia, Denies genital lesions, Denies flank pain and Denies urinary urgency Musculoskeletal: Musculoskeletal: Denies abnormal gait, Denies back pain, Denies myalgias, Denies arthralgias, Denies joint swelling, Denies muscle weakness and Denies neck pain Integumentary/Breasts: Skin/Breast: Denies swelling, Denies breast pain, Denies breast mass, Denies dry skin, Denies nipple discharge, Denies unusual bruising and Denies jaundice Neurologic: Denies Neuro-related abnormal movements, Denies Abnormal speech present, Denies abnormal gait, Denies behavioral changes, Denies confusion, Denies vertigo, Denies dizziness, Denies syncope, Denies loss of vision, Denies memory loss, Denies convulsions and Denies weakness Psychiatric: Psychiatric: Denies abnormal sleep pattern, Denies behavioral changes, Denies change in libido, Denies confusion, Denies depression, Denies anhedonia and Denies memory loss Endocrine: Endocrine: Reports no additional endocrine complaints, Denies change in libido and Denies fatigue Hematologic/Lymphatic: Hematologic/Lymphatic: Reports no additional hematologic/lymphatic complaints Allergic/Immunologic: Allergic/Immunologic: Reports no additional allergic/immunologic complaints and Denies wheezing PMFSH Past Medical History Medical History Acute bronchitis due to other specified organisms BMI 26.0-26.9,adult Chest discomfort Dizziness New persistent daily headache Family History Family History Father No problems noted. Mother Breast cancer Heart disease Sibling No problems noted. 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 Gender identity (if verbalized by the patient): Female Spiritual care concerns: No Meds Home Medications and Allergies Home Medications ?Medication ?Instructions ?Recorded ?Confirmed ?Type fluoxetine 20 mg capsule 20 mg PO DAILY 03/25/20 09/06/24 History estradiol 0.01% (0.1 mg/gram) 1 appful vaginal WEEKLY 08/23/24 08/28/24 History vaginal cream omeprazole 20 mg capsule,delayed 20 mg PO BID #180 caps 08/23/24 08/23/24 Rx release Allergies Allergy/AdvReac Type Severity Reaction Status Date / Time No Known Allergies Allergy Verified 09/06/24 11:29 Exam Const: General: cooperative, healthy appearing, comfortable and no acute distress Orientation/consciousness: oriented to person, oriented to place and oriented to time HENMT: Head: normal to inspection Ears: external ears normal Face/Nose/Sinus: Normal external nose present and normal facial exam Face and sinus: normal facial exam Eyes: General: appearance normal, both eyes and all related structures Neck: Neck: normal visual inspection, trachea midline and supple Resp: Auscultation: clear to auscultation bilaterally, no crackles, no rales, no rhonchi and no wheezes Cardio: Rate: regular rate Rhythm: regular rhythm Heart sounds: no click, no murmurs and no rubs GI: GI Palp: No abdominal tenderness, No Soft to palpation, No Tenderness to palpation present (GI) and No Palpable mass present Auscultation: normal bowel sounds Skin: General skin exam: normal color and no rashes or lesions noted Neuro: General: oriented to person, oriented to place and oriented to time Extrem: General: normal to inspection, no joint enlargement, no clubbing, cyanosis or edema, no pedal edema and no calf tenderness Psych: Appearance: grossly normal Mental Status: mental status grossly normal Speech and movement: Normal speech and movement present Assessment and Plan Assessment and plan (1) Pelvic mass: Code(s): R19.00 - Intra-abdominal and pelvic swelling, mass and lump, unspecified site Status: Acute Assessment and Plan: this patient is a 59-year-old female with cervical mass. We agreed to perform exam under anesthesia and hysteroscopy D&C. She understands risks, benefits, and alternatives.
== END 2024-09-06 13:32 | disposition home or self-care (01) ==
PROVIDERS: PCP Family Medicine; Visit Provider Obstetrics & Gynecology
PROC: 0U5B8ZZ Destruction of Endometrium, Via Natural or Artificial Opening Endoscopic (ICD-10-PCS; CPT 58563; principal; 2024-09-06 12:00)
DX: N88.9 Noninflammatory disorder of cervix uteri, unspecified (principal); N89.8 Other specified noninflammatory disorders of vagina
CPT/HCPCS: 45990; A9270; J2003; J2250; J2405; J2704; J3010; J7120

== ENCOUNTER 2024-10-10 21:05 | Emergency (ER) | payer BC, SELFPAY ==
--- NOTE | ~2024-10-10 | CT_ITS ---
EXAMINATION: CT abdomen pelvis w con DATE: 10/11/2024 04:59 INDICATION: Urinary retention with dysuria and flank pain. TECHNIQUE: Computed tomography (CT) of the abdomen and pelvis was performed with 100 cc Omnipaque 350 intravenous contrast. The dose-length product was 329.46 mGy-cm. Automated exposure control and iter ative reconstruction technique were employed. COMPARISON: None. FINDINGS: Heart size normal. Moderate size hiatal hernia. There is Sherman catheter in decompressed aguila dder. Endometrium is severely thickened and heterogeneous correlate with pelvic ultrasound. Bladder w all is thickened. Consider cystitis in the appropriate clinical setting. Normal appendix. Nonobstruct mya bowel gas pattern. The liver, spleen, pancreas, adrenal glands are unremarkable. Small subcentimeter hypodensities in bell th kidneys, most likely benign cysts. IMPRESSION: 1. Markedly thickened heterogeneous endometrium measuring up to 5.2 cm.. The differential diagnosis i ncludes endometrial hyperplasia, polyp and carcinoma. Biopsy is recommended. Recommend correlation with ultrasound. 2: Bladder wall thickening, suspicious for cystitis. Clinically correlate. Reviewed, dictated and finalized at location A. IMPRESSION: 1. Markedly thickened heterogeneous endometrium measuring up to 5.2 cm.. The di fferential diagnosis includes endometrial hyperplasia, polyp and carcinoma. Biopsy is recommended. Recommend correlation with ultrasound. 2: Bladder wall thickening, suspicious for cystitis. Clinically correlate.
--- OUTSIDE RECORDS SUMMARY | 2024-10-10 21:07 | XMS_ITS | Clinical Summary ---
Author Organization [facility] [email or web address] Address [address] [place] [address] Care Team Providers Care Per Diem Name Role Phone Jomar Sheikh MD Primary Care Provider [phone] Source Comments [facility] [email or web address],non-owned Affiliates and Associated Physician Practices is amultiple site organization consisting of ambulatory clinics and hospital sitesin [place], [place], [place] and [place]. This disclosure is being madepursuant to the Care Everywhere program and may not contain all information available regarding this patient. 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 Gender Identity Not on file Sexual Orientation Not on file Last Filed Vital Signs Vital Sign Reading Time Taken Comments Blood Pressure 110/72 04/20/2018 4:39 PM SALES CONSULTING DIRECTOR Pulse 72 04/20/2018 4:39 PM SALES CONSULTING DIRECTOR Temperature 37.1 C (98.8 F) 04/20/2018 4:39 PM SALES CONSULTING DIRECTOR Respiratory Rate 16 04/20/2018 4:39 PM SALES CONSULTING DIRECTOR Oxygen Saturation 99% 04/20/2018 4:39 PM SALES CONSULTING DIRECTOR Inhaled Oxygen Concentration - - Weight 62.6 kg (138 lb) 04/20/2018 4:39 PM SALES CONSULTING DIRECTOR Height 165.1 cm (5' 5) 04/20/2018 4:39 PM SALES CONSULTING DIRECTOR Body Mass Index 22.96 04/20/2018 4:39 PM SALES CONSULTING DIRECTOR Plan of Treatment Health Maintenance Due Date [...] patient's age to complete this topic Insurance [facility] Care Teams Per Diem Relationship Specialty Start Date End Date Jomar Sheikh MD [address] [place] [address] PCP - General 02/03/21
--- OUTSIDE RECORDS SUMMARY | 2024-10-10 21:07 | XMS_ITS | Clinical Summary ---
Author Organization 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
[2024-10-10 22:04] VITALS: BP 142/93; PULSE 80; RESP 16; TEMP 36.6; O2SAT 98
--- OUTSIDE RECORDS SUMMARY | 2024-10-11 00:34 | XMS_ITS | Clinical Summary ---
Author Organization [facility] [employer] Address [address] [address] Care Team Providers Care Business Objects Report Developer Name Role Phone Jomar Sheikh MD Primary Care Provider [phone] Source Comments [facility],non-owned Affiliates and Associated Physician Practices is amultiple site organization consisting of ambulatory clinics and hospital sitesin [place], [place], [place] and [place]. This disclosure is being madepursuant to the Care Everywhere program and may not contain all information available regarding this patient. 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 Gender Identity Not on file Sexual Orientation Not on file Last Filed Vital Signs Vital Sign Reading Time Taken Comments Blood Pressure 110/72 04/20/2018 4:39 PM ELECTRIC METER TESTER HELPER Pulse 72 04/20/2018 4:39 PM ELECTRIC METER TESTER HELPER Temperature 37.1 C (98.8 F) 04/20/2018 4:39 PM ELECTRIC METER TESTER HELPER Respiratory Rate 16 04/20/2018 4:39 PM ELECTRIC METER TESTER HELPER Oxygen Saturation 99% 04/20/2018 4:39 PM ELECTRIC METER TESTER HELPER Inhaled Oxygen Concentration - - Weight 62.6 kg (138 lb) 04/20/2018 4:39 PM ELECTRIC METER TESTER HELPER Height 165.1 cm (5' 5) 04/20/2018 4:39 PM ELECTRIC METER TESTER HELPER Body Mass Index 22.96 04/20/2018 4:39 PM ELECTRIC METER TESTER HELPER Plan of Treatment Health Maintenance Due Date [...] patient's age to complete this topic Insurance [facility] Care Teams Business Objects Report Developer Relationship Specialty Start Date End Date Jomar Sheikh MD [address] [place] [address] PCP - General 02/03/21
--- OUTSIDE RECORDS SUMMARY | 2024-10-11 00:34 | XMS_ITS | Clinical Summary ---
Author Organization 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
--- NOTE | 2024-10-11 00:56 | ED_ITS ---
HPI - Female Genitourinary General Chief complaint: Urogenital-Female Stated complaint: , urinary retention Time Seen by Provider: 10/11/24 00:25 Source: patient Mode of arrival: ambulatory Limitations: no limitations History of Present Illness HPI Narrative: This is a 59 year old female that presents to the ER for dysuria. Ongoing since yesterday. Reports flank pain. Denies fevers, vomiting, hematuria. Related Data Home Medications ?Medication ?Instructions ?Recorded ?Confirmed ?Last Taken ?Type fluoxetine 20 mg capsule 20 mg PO DAILY 03/25/20 09/06/24 09/06/24 History estradiol 0.01% (0.1 mg/gram) 1 appful vaginal WEEKLY 08/23/24 08/28/24 Unknown History vaginal cream Allergies Allergy/AdvReac Type Severity Reaction Status Date / Time No Known Allergies Allergy Verified 10/10/24 22:09 Review of Systems Review of Systems: All systems reviewed & are unremarkable except as noted in HPI and below PMFSH Past Medical History Medical History Acute bronchitis due to other specified organisms BMI 26.0-26.9,adult Chest discomfort Dizziness New persistent daily headache Family History Family History Father No problems noted. Mother Breast cancer Heart disease Sibling No problems noted. 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 Gender identity (if verbalized by the patient): Female Spiritual care concerns: No Exam Narrative: GENERAL: Well-appearing, well-nourished, and in no acute distress. HEAD: Normocephalic, atraumatic. EYES: EOMI. CHEST: Clear to auscultation. No respiratory distress. No wheezes rales or rhonchi HEART: Regular rate and rhythm. No murmur heard. Normal peripheral pulses. ABDOMEN: Soft, nondistended, normal active bowel sounds. Bladder is distended, tender to palpation of the lower abdomen EXTREMITIES: Normal range of motion. No edema. SKIN: Warm, dry, no rash. NEURO: No focal deficits. Alert and oriented x3. PSYCH: Normal mood and affect Course Vital Signs Vital signs: Vital Signs Temperature 97.8 F 10/10/24 22:04 Pulse Rate 80 10/10/24 22:04 Respiratory Rate 16 10/10/24 22:04 Blood Pressure 142/93 H 10/10/24 22:04 Pulse Oximetry 98 10/10/24 22:04 Oxygen Delivery Room Air 10/10/24 22:04 Temperature 97.8 F 10/10/24 22:04 Pulse Rate 80 10/10/24 22:04 Respiratory Rate 16 10/10/24 22:04 Blood Pressure 142/93 H 10/10/24 22:04 Pulse Oximetry 98 10/10/24 22:04 Oxygen Delivery Room Air 10/10/24 22:04 MDM - Female Genitourinary MDM Narrative Medical decision making narrative: Patient presents the emergency department for dysuria, urinary retention. Found to have 500 mL in her bladder on bladder scan. Sherman catheter was placed. Draining well. She is afebrile and nontoxic appearing. Her vitals are stable. Mild leukocytosis on CBC. Metabolic panel with normal kidney function. Urine with evidence of infection. This will be sent for culture. Patient given 1st dose of antibiotics IV in the ER. CT abdomen pelvis is showing a thickened endometrium, recommend pelvic ultrasound. Patient was updated on her workup and agrees with plan of care. Instructed to have close follow-up with her chemical production machine operator as well as Urology. She was given warnings to return to the ER Differential Diagnosis Differential diagnosis: Likely urinary tract infection, cystitis and other (endometrial cancer, urinary retention, ureterolithiasis) Imaging Data Radiologist's impression: CT abdomen/pelvis: Endometrium is thickened with heterogenous material. Recommend ultrasound Critical Care Time Critical Care Time Critical Care Time: No Discharge Plan Discharge Clinical Impression: Endometrial hyperplasia, Acute urinary retention, Acute UTI Patient Disposition: Home Condition: Improved Instructions: Antibiotic Form, Urinary Tract Infection in Women (ED), Sherman Catheter Placement and Care (ED), Acute Urinary Retention in Women (ED) Additional Instructions: Return to the ER if you experience fever, abdominal pain with nausea and vomiting, you are unable to keep down liquids or solids, or any other symptoms that are concerning to you Remain well hydrated. Take oral antibiotics as prescribed Your endometrium looks thickened on the CT scan, the radiologist is recommending an US of your pelvis for further evaluation Follow up with your chemical production machine operator and urology (Dr. Whitehead) Patient Language: [place] Prescriptions: No Action fluoxetine 20 mg capsule 20 mg PO DAILY estradiol 0.01 % (0.1 mg/gram) cream 1 appful VAGINAL WEEKLY Patient Comments: 3 times a week. omeprazole 20 mg capsule,delayed release(DR/EC) 20 mg PO BID Qty: 180 1RF Follow-up/Referrals: Quoc Bruce MD [Physician] - Cristo Whitehead MD [Physician] - Jomar Sheikh MD [Primary Care Provider] -
[2024-10-11 05:37] LABS: Alanine Aminotransferase 17 U/L (6-35); Albumin Level 4.3 g/dL (3.5-5.1); Alkaline Phosphatase 58 U/L (38-126); Anion Gap 10 mmol/L (4-12); Aspartate Amino Transferase 34 U/L (14-36); Bilirubin,Total 0.6 mg/dL (0.2-1.3); Blood Urea Nitrogen 13 mg/dL (7-17); Calcium 9.6 mg/dL (8.4-10.2); Carbon Dioxide 23 mmol/L (22-30); Chloride 105 mmol/L (98-107); Estimated CRCL calculation 57 ml/min; Estimated Glomerular Filt Rate > 60; Glucose 116 mg/dL (65-110); Potassium 4.3 mmol/L (3.4-5.0); Sodium 138 mmol/L (137-145); Total Protein 8.2 g/dL (6.3-8.2)
[2024-10-11 05:44] LABS: Hematocrit 37.4 % (37.0-47.0); Hemoglobin 12.5 g/dL (12.0-15.0); Immature Granulocyte Percent A 0.2 % (0-0.5); Lymphocytes Absolute Auto 1.21 K/mm3 (0.9-3.2); Mean Corpuscular HGB Conc 33.4 g/dl (32-36); Mean Corpuscular Hemoglobin 30.7 pg (26-34); Mean Corpuscular Volume 91.9 fl (80-100); Nucleated Red Blood Cells Absolute Auto 0.000 K/mm3 (0.0-0.012); Nucleated Red Blood Cells Perc 0.0 % (0.0-0.2); Platelet Count Result 360 k/mm3 (150-375); Red Blood Count 4.07 M/mm3 (4.2-5.4); White Blood Count 10.7 K/mm3 (4.5-10.0)
[2024-10-11 05:48] LABS: Add Urine Microscopic? YES; Appearance Urine Clear (Clear); Glucose Urine UA Negative (Negative); Leukocyte Esterase Ur Trace LEU/UL (Negative); Nitrate Urine Positive (Negative); Non Pathogenic Casts 0-2; Specific Grav Ur 1.013 (1.001-1.035)
[2024-10-11] MEDS: cefTRIAXone 1 GM in SODIUM CHLORIDE 0.9% IV 50 ML 100 ML IVPB (05:51)
[2024-10-11 06:06] VITALS: BP 119/56; PULSE 68; RESP 16; TEMP 36.8; O2SAT 98
== END 2024-10-11 06:07 | disposition home or self-care (01) ==
PROVIDERS: Student in an Organized Health Care Education/Training Program; Emergency Provider Physician Assistant; PCP Family Medicine
DX: N39.0 Urinary tract infection, site not specified (principal); N85.00 Endometrial hyperplasia, unspecified; R33.9 Retention of urine, unspecified
CPT/HCPCS: 36415; 51702; 74177; 80053; 81001; 85025; 87086; 96365; 99284; J0696; Q9967